=== PATIENT | female | born 1960 | race Caucasian/White ===

== ENCOUNTER 2017-12-01 11:18 | Emergency (ER) | payer OTHER ==
[~2017-12-01] VITALS: Ht 167.6 cm; Wt 89.3 kg
[2017-12-01] MEDS ORDERED: PERCOCET 5/31 TABLET PO (14:51)
[2017-12-01 16:29] VITALS: BP 172/86
== END 2017-12-01 16:39 | disposition home or self-care (01) ==
LOC: EME 11:18
DX: S82.852A Displaced trimalleolar fracture of left lower leg, initial encounter for closed fracture (principal); W19.XXXA Unspecified fall, initial encounter; E11.9 Type 2 diabetes mellitus without complications; E78.5 Hyperlipidemia, unspecified; R56.9 Unspecified convulsions; F17.200 Nicotine dependence, unspecified, uncomplicated
CPT/HCPCS: 73590; 73610; 99281; 99285; J3010